=== PATIENT | male | born 1990 | race Two or more races ===

== ENCOUNTER 2022-10-29 10:52 | Emergency (ER) | payer SELFPAY ==
[~2022-10-29] VITALS: Ht 167.6 cm; Wt 62.7 kg
[2022-10-29 11:34] VITALS: BP 119/74
[2022-10-29] MEDS ORDERED: AUG875T PO (12:25)
[2022-10-29] MEDS ORDERED: ACET-1079 PO (12:25)
[2022-10-29] MEDS ORDERED: ACETAMINOPHEN 500 MG TAB PO ONE (12:30)
[2022-10-29] MEDS ORDERED: cefTRIAXone SOD 1,000 MG VL IM ONE (12:30)
== END 2022-10-29 12:38 | disposition home or self-care (01) ==
LOC: ER 10:52
DX: K08.89 Other specified disorders of teeth and supporting structures (principal)
CPT/HCPCS: 96372; 99283; J0696